=== PATIENT | female | born 1990 | race Hispanic/Latino ===

== ENCOUNTER → 2020-03-13 14:05 | Outpatient (CLI) | payer OTHER, SELFPAY ==
[2020-03-13 14:44] LABS: Appearance Urine UA CLEAR; Bilirubin Urine UA NEGATIVE (NEGATIVE); Color Urine UA YELLOW; Glucose Urine UA NEGATIVE (Negative); Ketones Urine UA NEGATIVE (NEGATIVE); Leukocyte Esterase Urine UA NEGATIVE (NEGATIVE); Nitrite Urine UA NEGATIVE (Negative); Occult Blood Urine UA TRACE-LYSED (Negative); Protein Urine UA NEGATIVE (Negative); Specific Gravity Urine UA 1.025 (1.000-1.035); Urobilinogen Urine UA 0.2 E.U./dL (0.2)
[2020-03-13 14:47] LABS: Pregnancy Test Urine Negative (Negative)
[2020-03-13 14:48] LABS: Add Manual Diff / Slide Review NO; Basophils Absolute Auto 0 /uL (0-100); Basophils Percent Auto 0.5 % (0-2); Eosinophils Absolute Auto 300 /uL (0-450); Eosinophils Percent Auto 2.9 % (2-4); Hemoglobin 12.9 g/dL (12.0-16.0); Lymphocytes Absolute Auto 2200 /uL (1100-4500); Lymphocytes Percent Auto 23.9 % (25-40); Mean Corpuscular HGB Conc 33.1 % (30-36); Mean Corpuscular Hemoglobin 27.7 PG (26-34); Mean Corpuscular Volume 83.6 fL (80-100); Monocytes Absolute Auto 500 /uL (0-900); Monocytes Percent Auto 5.6 % (3-14); Neutrophils Absolute Auto 6200 /uL (1500-7000); Neutrophils Percent Auto 67.1 % (50-75); Platelet Count 213 X10^3/uL (150-400); Red Blood Cell Count 4.67 X10^6/uL (4.0-5.2); Red Cell Distribution Width 14.1 % (11.6-14.8); White Blood Cell Count 9.2 X10^3/uL (4.5-11.0)
[2020-03-13 15:11] LABS: Alanine Aminotransferase 28 IU/L (<35); Albumin 4.5 g/dL (3.5-5.0); Albumin Globulin Ratio 1.2 (1.0-2.8); Alkaline Phosphatase 102 U/L (38-126); Aspartate Aminotransferase 23 IU/L (14-36); BUN Creatinine Ratio 19.6 (6-22); Bilirubin Total 0.3 mg/dL (0.2-1.3); Blood Urea Nitrogen 9 mg/dL (7-17); Calcium 9.4 mg/dL (8.4-10.2); Carbon Dioxide 27 mmol/L (22-32); Chloride 105 mmol/L (98-107); Cholesterol 163 mg/dL (140-199); Estimated Glomerular Filt Rate > 60.0 mL/min (>60); Globulin 3.7 g/dL (1.7-4.1); Glucose 93 mg/dL (70-100); HDL Cholesterol 45 mg/dL (40-60); HEMOLYSIS < 15 (0-50); LDL Cholesterol Calculated 84 mg/dL (<100); Sodium 140 mmol/L (137-145); Total Protein 8.2 g/dL (6.3-8.2); Triglycerides 169 mg/dL (35-150)
[2020-03-13 15:13] LABS: Hemoglobin A1C% w Est Avg Glu 5.6 % (4.0-6.0)
[2020-03-13 15:20] LABS: pH Urine UA 6.5 (4.5-8.0)
[2020-03-13 15:27] LABS: RBC Urine 0-1/HPF (0-5/HPF); Squamous Epithelial Cell Urine 5-10 /HPF (0-5/HPF); WBC Urine 1-5/HPF (0-5/HPF)
[2020-03-13 15:28] LABS: Bacteria Urine Moderate (10-30); Culture Indicated Urine Cult Not Indicated
[2020-03-13 15:38] LABS: TSH w/ Reflex to FT4 1.34 uIU/mL (0.47-4.68)
[2020-03-17 05:38] LABS: Percent Free Testosterone 2.24 % (0.50-2.80); Testosterone Free 0.72 ng/dL (0.10-0.85); Testosterone Total 32.2 ng/dL (10.0-55.0)
== END ==
PROVIDERS: PCP Family Medicine; Referring Provider Family Medicine; Visit Provider Family Medicine
DX: E66.9 Obesity, unspecified (principal); N92.6 Irregular menstruation, unspecified
CPT/HCPCS: 36415; 80053; 80061; 81001; 81025; 83036; 84402; 84403; 84443; 85025

== ENCOUNTER → 2020-05-26 11:07 | Outpatient (CLI) | payer OTHER, SELFPAY ==
--- NOTE | 2020-05-26 11:08 | DI.US.S_ITS ---
PROCEDURE: US PELVIC COMPLETE INDICATIONS: Infertility/possible PCOS TECHNIQUE: Real-time scanning was performed of the pelvic organs, with image documentation. Additional endovaginal scanning was necessary due to incomplete visualization of the adnexal and endometrial structures by transabdominal scanning. COMPARISON: None. FINDINGS: Uterus: Uterus is normal in size at 8.2 x 4.3 x 5.8 cm. The endometrium measures 5 mm in combined thickness. Ovaries: The right ovary measures 3.5 x 1.7 x 1.4 cm. The left ovary measures 4.3 x 2.6 x 2.2 cm. The ovaries have a normal sonographic appearance. Less than 12 follicles can be seen involving each ovary. No adnexal masses are seen. Other: No pathologic free abdominal or pelvic fluid. IMPRESSION: Study within normal limits, without findings of polycystic ovarian syndrome. Dictated by: Elroy Varner M.D. on 05/26/2020 at 12:08 Approved by: Elroy Varner M.D. on 05/26/2020 at 12:08
== END ==
PROVIDERS: PCP Family Medicine; Referring Provider Family Medicine; Visit Provider Family Medicine
DX: N97.9 Female infertility, unspecified (principal); N92.0 Excessive and frequent menstruation with regular cycle; N92.6 Irregular menstruation, unspecified
CPT/HCPCS: 76830; 76856

== ENCOUNTER → 2020-12-15 09:32 | Outpatient (CLI) | payer OTHER, SELFPAY ==
--- NOTE | 2020-12-15 09:33 | DI.US.S_ITS ---
PROCEDURE: US OB <= 14 WEEKS FETUS INDICATIONS: DATING AND VIABILITY OUTSIDE/PRIOR DATING DATA: Last menstrual period (LMP): 10/11/20 . LMP-based estimated date of delivery (FAIZAN): 07/18/21 . First dating scan (date and location): 12/15/20, current study Estimated date of delivery (FAIZAN) from first dating scan: 07/12/21 . TECHNIQUE: Real-time scanning was performed of the fetuses and maternal pelvic organs, with image documentation. Endovaginal scanning: Performed for better visualization of the fetuses and maternal adnexal structures. COMPARISON: None. FINDINGS: General: An intrauterine diamniotic dichorionic twin is present, as evidenced by separate placental sites and/or intervening membrane thickness of greater than 2 mm at this early gestational age. Embryo A: Average crown-rump length is 3.3 cm corresponding to a 10 week one day plus or minus six days gestation. Yolk sac was visible. Heart rate: 171 Embryo B: Average crown-rump length is 3.1 cm corresponding to a nine week six day plus or minus six days gestation. Due to maternal body habitus and position, a yolk sac was not well seen. Heart rate: 165 Measurement variability in dating: +/- 4 weeks by LMP, +/- 7 days by mean sac diameter (use before 6 weeks gestation if crown-rump length unable to be measured), +/- 5 days by crown-rump length (up to 8 weeks 6 days gestation), +/- 7 days by crown-rump length (up to 13 weeks 6 days gestation). Maternal organs: Ovaries not well seen due to maternal body habitus. The cervix is closed. There is no visible active subchorionic hemorrhage. No free pelvic fluid. . IMPRESSION: 1. Diamniotic dichorionic viable twin is present. Ultrasound derived FAIZAN of the larger fetus is 07/12/21. 2. Closed cervix and no subchorionic hemorrhage. Dictated by: Sandra Stanton M.D. on 12/15/2020 at 18:44 Approved by: Sandra Stanton M.D. on 12/15/2020 at 18:59
== END ==
PROVIDERS: PCP Family Medicine; Referring Provider Obstetrics & Gynecology; Visit Provider Obstetrics & Gynecology
DX: O30.041 Twin pregnancy, dichorionic/diamniotic, first trimester (principal); Z3A.09 9 weeks gestation of pregnancy
CPT/HCPCS: 76801; 76802; 76817

== ENCOUNTER → 2020-12-24 15:40 | Outpatient (CLI) | payer OTHER, SELFPAY ==
[2020-12-24 19:52] LABS: Bilirubin Urine UA NEGATIVE (NEGATIVE); Color Urine UA YELLOW; Glucose Urine UA NEGATIVE (Negative); Ketones Urine UA 2+ (NEGATIVE); Leukocyte Esterase Urine UA 2+ (NEGATIVE); Nitrite Urine UA NEGATIVE (Negative); Occult Blood Urine UA TRACE-LYSED (Negative); Protein Urine UA 1+ (Negative); Specific Gravity Urine UA 1.025 (1.000-1.035); Urobilinogen Urine UA 0.2 E.U./dL (0.2)
[2020-12-24 19:59] LABS: Appearance Urine UA Slightly Cloudy
[2020-12-24 20:01] LABS: Amorphous Sediment Urine 1+; Bacteria Urine Many (>30); Mucus Urine 1+ (Negative); RBC Urine 0-1/HPF (0-5/HPF); Squamous Epithelial Cell Urine 5-10 /HPF (0-5/HPF); WBC Urine 30-100/HPF (0-5/HPF)
== END ==
PROVIDERS: PCP Family Medicine; Referring Provider Obstetrics & Gynecology; Visit Provider Obstetrics & Gynecology
DX: Z34.81 Encounter for supervision of other normal pregnancy, first trimester (principal); Z3A.11 11 weeks gestation of pregnancy
CPT/HCPCS: 81001; 87077; 87086

== ENCOUNTER → 2021-01-12 09:16 | Outpatient (CLI) | payer OTHER, SELFPAY ==
--- NOTE | 2021-01-12 09:17 | DI.US.S_ITS ---
PROCEDURE: US OB >= 14 WK FETUS ADD GEST INDICATIONS: GROWTH DI-DI TWINS OUTSIDE/PRIOR DATING DATA: Last menstrual period (LMP): 10/11/2020. LMP-based estimated date of delivery (FAIZAN): 07/18/2021 . First dating scan (date and location): 12/15/2020 . Estimated date of delivery (FAIZAN) from first dating scan: 07/12/2021 . TECHNIQUE: Real-time scanning was performed of the fetuses, with image documentation and biometric measurements. Endovaginal scanning: Yes COMPARISON: None. FINDINGS: General: An intrauterine dichorionic-diamniotic twin is present, as evidenced by separate placentas, differing sexes, or an intervening membrane of greater than 2 mm. Composite amniotic fluid index: Subjectively normal. Maternal cervical canal: 4.2 cm, with complete previa at this time. Normal lower limit is 2.5 cm. FETUS A: Fetus is located variable in position.. Largest amniotic fluid pocket: Not obtained. heart rate: 168 beats per minute. biometrics: Biparietal diameter: 14 weeks 3 days Head circumference: 14 weeks 2 days Abdominal circumference: 14 weeks 5 days Femur length: 14 weeks 2 days Estimated gestational age from initial scan: 14 weeks 1 day Composite gestational age from present scan: 14 weeks 3 days Measurement variability for biometric dating: +/- 7 days from 14 weeks to 15 weeks 6 days gestation, +/- 10 days from 16 weeks to 21 weeks 6 days gestation, +/- 2 weeks from 22 weeks to 27 weeks 6 days gestation, +/- 3 weeks for 28 weeks gestation or later. weight reference: 4500 g or EFW >90/95% is considered macrosomia or large for gestational age. EFW <10% is small for gestational age. EFW 5% or less is considered intra-uterine growth restriction. FETUS B: Fetus is variable in position. Largest amniotic fluid pocket: Subjectively normal. heart rate: 150 beats per minute. biometrics: Biparietal diameter: 14 weeks 6 days Head circumference: 14 weeks 6 days Abdominal circumference: 15 weeks Femur length: 14 weeks 3 days Estimated gestational age from initial scan: 14 weeks 1 day Composite gestational age from present scan: 14 weeks 6 days Measurement variability for biometric dating: +/- 7 days from 14 weeks to 15 weeks 6 days gestation, +/- 10 days from 16 weeks to 21 weeks 6 days gestation, +/- 2 weeks from 22 weeks to 27 weeks 6 days gestation, +/- 3 weeks for 28 weeks gestation or later. weight reference: 4500 g or EFW >90/95% is considered macrosomia or large for gestational age. EFW <10% is small for gestational age. EFW 5% or less is considered intra-uterine growth restriction. IMPRESSION: 1. Diamniotic dichorionic living twin gestation redemonstrated and interval growth is normal. 2. Limited anatomic survey secondary to early gestational age. Follow-up is recommended. 3. Complete previa at this time which can be reassessed on follow-up examination. Dictated by: Leandro SHEPPARD Interpreted: Sera Wilson MD on 01/13/2021 at 9:37 Transcribed by: NNAMDI on 01/13/2021 at 9:42 Approved by: Sera Wilson M.D. on 01/13/2021 at 16:12
== END ==
PROVIDERS: PCP Family Medicine; Referring Provider Obstetrics & Gynecology; Visit Provider Obstetrics & Gynecology
DX: O30.041 Twin pregnancy, dichorionic/diamniotic, first trimester (principal); Z3A.14 14 weeks gestation of pregnancy
CPT/HCPCS: 36415; 76801; 76811; 76812; 76815; 76817; 80055; 86787; 86803; 86850; 86900; 86901; 87389

== ENCOUNTER → 2021-01-12 10:03 | Outpatient (CLI) | payer OTHER, SELFPAY ==
[2021-01-12 10:34] LABS: Add Manual Diff / Slide Review NO; Basophils Absolute Auto 0 /uL (0-100); Basophils Percent Auto 0.4 % (0-2); Eosinophils Absolute Auto 100 /uL (0-450); Hematocrit 34.3 % (36-46); Hemoglobin 11.5 g/dL (12.0-16.0); Lymphocytes Absolute Auto 1600 /uL (1100-4500); Lymphocytes Percent Auto 15.8 % (25-40); Mean Corpuscular HGB Conc 33.6 % (30-36); Mean Corpuscular Hemoglobin 27.8 PG (26-34); Mean Corpuscular Volume 82.6 fL (80-100); Monocytes Absolute Auto 500 /uL (0-900); Monocytes Percent Auto 5.3 % (3-14); Neutrophils Absolute Auto 7900 /uL (1500-7000); Neutrophils Percent Auto 77.5 % (50-75); Platelet Count 194 X10^3/uL (150-400); Red Blood Cell Count 4.15 X10^6/uL (4.0-5.2); Red Cell Distribution Width 14.6 % (11.6-14.8); White Blood Cell Count 10.2 X10^3/uL (4.5-11.0)
[2021-01-12 15:59] LABS: Hepatitis B Surface Antigen NEGATIVE s/c (NEGATIVE); Rubella Antibody IgG 56.7 IU/mL (>15)
[2021-01-12 16:14] LABS: HIV 1 & 2 Ab/Ag 4th Gen Combo NEGATIVE (NEGATIVE); Hep C Virus Ab w/Reflex Quant NEGATIVE s/c (NEGATIVE)
[2021-01-13 06:54] LABS: RPR Screen Non Reactive (Non Reactive); Varicella IgG Antibody 1796 index (Immune >165)
== END ==
PROVIDERS: PCP Family Medicine; Referring Provider Obstetrics & Gynecology; Visit Provider Obstetrics & Gynecology
DX: Z34.90 Encounter for supervision of normal pregnancy, unspecified, unspecified trimester (principal)
CPT/HCPCS: 36415; 80055; 86787; 86803; 86850; 86900; 86901; 87389

== ENCOUNTER → 2021-01-23 13:59 | Outpatient (CLI) | payer OTHER, SELFPAY ==
[2021-01-23 17:50] LABS: GTT (PREG) 1 Hour PP 50gm Dose 144 mg/dL (76-139)
[2021-01-26 21:17] LABS: AFP, Serum 37.4 ng/mL (.); Calc Gestational Age Ultrasound (.); Estriol, Free 0.76 ng/mL (.); Inhibin A, Dimeric 267.26 pg/mL (.); Inhibin A, MoM 2.31 (.); Maternal Ethnicity Other (.); Maternal Weight 286 lbs (.); Number of Fetuses Twins (.); OSBR Risk 1 IN 3406 (.); Results Report (.); Test Results *Screen Negative* (.); hCG, MoM 1.56 (.); hCG, Serum 47992 mIU/mL (.)
== END ==
PROVIDERS: PCP Family Medicine; Referring Provider Obstetrics & Gynecology; Visit Provider Obstetrics & Gynecology
DX: E66.9 Obesity, unspecified (principal); O09.299 Supervision of pregnancy with other poor reproductive or obstetric history, unspecified trimester; Z3A.15 15 weeks gestation of pregnancy; Z86.32 Personal history of gestational diabetes
CPT/HCPCS: 36415; 82105; 82677; 82950; 84702; 86336

== ENCOUNTER → 2021-02-06 07:49 | Outpatient (CLI) | payer OTHER, SELFPAY ==
[2021-02-06 08:51] LABS: Glucose Fasting Gestational 87 mg/dL (76-95)
[2021-02-06 10:02] LABS: Glucose 1 Hour Gest 185 mg/dL (76-180)
[2021-02-06 11:20] LABS: Glucose Tol Interp,Gestational INTERPRETATION
[2021-02-06 11:52] LABS: Glucose 2 Hour Gest 117 mg/dL (76-155)
[2021-02-06 12:45] LABS: Glucose 3 Hour Gest 73 mg/dL (76-140)
== END ==
PROVIDERS: PCP Family Medicine; Referring Provider Obstetrics & Gynecology; Visit Provider Obstetrics & Gynecology
DX: O99.810 Abnormal glucose complicating pregnancy (principal)
CPT/HCPCS: 36415; 82951; 82952

== ENCOUNTER → 2021-02-09 09:11 | Outpatient (CLI) | payer OTHER, SELFPAY ==
--- NOTE | 2021-02-09 09:12 | DI.US.S_ITS ---
PROCEDURE: US OB LIMITED INDICATIONS: GROWTH OF DIAMNOTIC TWINS OUTSIDE/PRIOR DATING DATA: Last menstrual period (LMP): 10/11/2020. LMP-based estimated date of delivery (FAIZAN): 07/18/2021. First dating scan (date and location): 12/15/2020 Estimated date of delivery (FAIZAN) from first dating scan: 07/12/2021 TECHNIQUE: Real-time scanning was performed of the fetuses, with image documentation and biometric measurements. Endovaginal scanning: Yes COMPARISON: None. FINDINGS: General: An intrauterine dichorionic-diamniotic twin is present, as evidenced by separate placentas, differing sexes, or an intervening membrane of greater than 2 mm. Composite amniotic fluid index: Visually within normal limits. Maternal cervical canal: Visually within normal limits. FETUS A: Fetus is in variable presentation Largest amniotic fluid pocket: 4.8 cm, normal is 2-8 cm. Placental position is posterior, without previa. heart rate: 149 beats per minute. biometrics: Biparietal diameter: 4.2 cm, 18 weeks, 5 days Head circumference: 15.3 cm, 18 weeks, 2 days Abdominal circumference: 13.4 cm, 18 weeks, 6 days Femur length: 2.8 cm, 18 weeks, 4 days Estimated gestational age from initial scan: 18 weeks, 1 day Composite gestational age from present scan: 18 weeks, 4 days Estimated weight and percentile: 253 grams, 79 percent Measurement variability for biometric dating: +/- 7 days from 14 weeks to 15 weeks 6 days gestation, +/- 10 days from 16 weeks to 21 weeks 6 days gestation, +/- 2 weeks from 22 weeks to 27 weeks 6 days gestation, +/- 3 weeks for 28 weeks gestation or later. weight reference: 4500 g or EFW >90/95% is considered macrosomia or large for gestational age. EFW <10% is small for gestational age. EFW 5% or less is considered intra-uterine growth restriction. FETUS B: Fetus is in vertex presentation. Largest amniotic fluid pocket: 4.2 cm, normal is 2-8 cm. Placental position is posterior, without previa. heart rate: 168 beats per minute. biometrics: Biparietal diameter: 4.0 cm, 18 weeks, 0 days. Head circumference: 15.4 cm, 18 weeks, 3 days Abdominal circumference: 14.0 cm, 19 weeks, 2 days Femur length: 2.7 cm, 18 weeks, 1 day Estimated gestational age from initial scan: 18 weeks, 1 day Composite gestational age from present scan: 18 weeks, 3 days Estimated weight and percentile: 254 grams, 80 percent. Measurement variability for biometric dating: +/- 7 days from 14 weeks to 15 weeks 6 days gestation, +/- 10 days from 16 weeks to 21 weeks 6 days gestation, +/- 2 weeks from 22 weeks to 27 weeks 6 days gestation, +/- 3 weeks for 28 weeks gestation or later. weight reference: 4500 g or EFW >90/95% is considered macrosomia or large for gestational age. EFW <10% is small for gestational age. EFW 5% or less is considered intra-uterine growth restriction. IMPRESSION: 1. Intrauterine dichorionic and diamniotic twin as described in detail above. Normal amount of amniotic fluid. Normal growth. Dictated by: Dimitry Dean M.D. on 02/09/2021 at 11:11 Approved by: Dimitry Dean M.D. on 02/09/2021 at 11:16
== END ==
PROVIDERS: PCP Family Medicine; Referring Provider Obstetrics & Gynecology; Visit Provider Obstetrics & Gynecology
DX: O30.042 Twin pregnancy, dichorionic/diamniotic, second trimester (principal); O09.299 Supervision of pregnancy with other poor reproductive or obstetric history, unspecified trimester; O99.212 Obesity complicating pregnancy, second trimester; E66.01 Morbid (severe) obesity due to excess calories; Z68.42 Body mass index [BMI] 45.0-49.9, adult; Z86.32 Personal history of gestational diabetes; Z3A.18 18 weeks gestation of pregnancy
CPT/HCPCS: 76812; 76815

== ENCOUNTER → 2021-03-04 14:21 | Outpatient (CLI) | payer OTHER, SELFPAY ==
--- NOTE | 2021-03-04 17:15 | DIAB.GDA ---
Initial Gestational Diabetes Assessment Name: Adilia Avila Date: 03/04/21 Time: 230-4p Dx: Gestational Diabetes Provider: Galo FAIZAN: 07/12/21 Weeks: 21 Adilia presents for initial diabetes visit. States she has a h/o GDM with her daughter 6 years ago. Currently with twin boys. States she sees two OB providers, Dr. Rosenthal and a [facility] specialist. Brought her new meter today. Would like a meter review and to focus on nutrition recs today. Reports about a 20# gain during so far. Attributes this to eliminating her exercise routine once she found out she was . Was previously doing Beach [employer] exercises for weight loss. States she has been mostly avoiding soda, but does occasionally have reg soda. Diet Recall: 630-7a: breakfast sandwich with coffee and creamer (35-40g CHO) 10-11a: snack bar (25g CHO) 1230-1p: top ramen OR sandwich OR sushi OR [employer] burger and fries +/- soda (30-130g CHO) 4-5p: 1-1.5 c pasta +/- chicken OR 1c rice with chicken OR meat and veg OR fish tacos x 2 small (0-65g CHO) 7p: cheese sandwich OR apple OR frosted flakes with milk (15-45g CHO) Beverages: 60-80oz water, occasionally soda diet or reg Anthropometrics: Ht: 64 Wt: 297.6# today Prepregnancy wt: 275# reported Wt changes: +22.6# Prepregnancy BMI: 47 Recommended wt gain per BMI: 25-40# per IOM recs for twins Recommendations: slow weight gain to 0.5-0.8# per week Physical Activity: No current program. Was working out 3 x per week. Does not want to walk in cold weather. Plans to move next week to a place that has a gym. Open to walks inside at gym. Has step tracker watch, but does not use after work. Self-Monitoring Blood Glucose: Freestyle meter instruction with return demonstration. BG today was 109mg/dL 2 hr after lunch. States her provider suggested FBG and 1 hr pc checks, which this RD/CDCES agrees with. Diabetes Medications: None Pertinent Labs: 144 H glucose screen; OGTT: 87, 185 H, 117, 73 Nutrition Rx for twins: Carbohydrates: 200-245g CHO daily Meal: 45-60g lunch and dinner; 30-45g breakfast Snack: 15-30g *Will re-evaluate carb recs next week based on BG checks and current intake. Nutrition Diagnosis: Altered nutrition related lab value r/t GDM dx aeb recent OGTT Excessive CHO intake r/t beverage choices sometimes aeb diet recall at lunch Physical inactivity r/t omission of program due to fear of impacting aeb pt report and recent 20# weight gain INadequate fiber intake r/t omission of vegetables from most meals aeb diet recall Intervention: This participant was very receptive. Provided appropriate educational handouts. Discussed the following topics: GDM pathophysiology and impact of hyperglycemia on mom and baby Risk for T2DM for mom and baby in the future Ways to reduce risk T2DM Plate Method, meal timing, carb counting, pairing macronutrients and spreading out CHO for better BG management SMBG meter teach and sharps education Blood glucose goals (FBG: <95 and 1 hour <140 mg/dL); importance of checking 4x per day (FBG and pc) Impact of macronutrients on blood glucose Recommended servings for carbohydrates at meals and snacks Brainstormed appropriate meal plan based on her food preferences Role of physical activity and following provider guidelines for safety Goals: Add vegetables to lunch and dinner Track steps with watch Check BG: FBG and 1 hr pc goals FBG: <95 and 1 hr: <140 Follow-up: RADHA WHARTON follow-up in one week for BG review and nutrition rx evaluation. Tracy Marrero RDN, DIO Certified Diabetes Care and Furniture Fabricator T: [phone] F: [phone] [email or web address] Thank you for this referral
== END ==
PROVIDERS: PCP Family Medicine; Referring Provider Family Medicine; Visit Provider Family Medicine
DX: O24.419 Gestational diabetes mellitus in pregnancy, unspecified control (principal); Z3A.21 21 weeks gestation of pregnancy
CPT/HCPCS: 97802

== ENCOUNTER → 2021-03-11 13:56 | Outpatient (CLI) | payer OTHER, SELFPAY ==
--- NOTE | 2021-03-11 14:48 | DIAB.GDFU ---
Follow-up Gestational Diabetes Assessment Name: Adilia Avila Date: 03/11/21 Time: 2-230p Dx: Gestational Diabetes Provider: FAIZAN: 07/12/21 Weeks: 22 Adilia presents for DM follow-up for BG review. States she has been avoiding candy, soda, and junk foods high in carbs. Eating q 3 hours with three meals and two snacks per day. Most meals within nutrition goal of 45-60g CHO and breakfast 30-45g. Seems to be getting adequate intake and feels satisfied with meal plan. Some snacks low in protein. Mindful about adding more vegetables and salads. Does endorse poor sleep many nights which may be impacting FBG. Adilia and her have moved. States her 's family comes to town next week, which impacts her physical activity plans. Anthropometrics (last visit): Ht: 64 Wt: 297.6# Last visit Prepregnancy wt: 275# reported Wt changes: +22.6# Prepregnancy BMI: 47 Recommended wt gain per BMI: 25-40# per IOM recs for twins Recommendations: slow weight gain to 0.5-0.8# per week Physical Activity: No program yet. Tracking watch broke during the move. Has been moving her body freq due to moving. Careful about lifting. Moved closer to a gym and wants to attend starting 03/23. Self-Monitoring Blood Glucose: checking as rx'd: FBG and 1 hr pc. All in range. Some lower readings (80-90s) pc may indicate low carb intake. Discussed leaning toward 60g for a meal 1-2 x per day to ensure adequate intake with twins. FBG in range but quite variable. Waking 1-2 x per night. Avoids phone usage when waking. Having a hard time getting right back to sleep. Could be impacting FBG. Overall, well managed BG. Date Pre Post Pre Post Pre Post HS 03/04 109 2hr 93 03/05 76 130 115 03/06 90 99 84 126 03/07 85 125 99 103 03/08 92 137 113 92 6 92 103 105 115 03/10 92 113 114 109 8 86 108 110 Diabetes Medications: None Pertinent Labs: 144 H glucose screen; OGTT: 87, 185 H, 117, 73 (Last visit) Nutrition Rx for twins: Carbohydrates: 200-245g CHO daily Meal: 45-60g lunch and dinner; 30-45g breakfast Snack: 15-30g *Will cont to re-evaluate carb recs, BG checks and current intake. Intervention: This participant was very receptive. Provided appropriate educational handouts. Discussed the following topics: Recent blood sugar results and impact of food and hormones Importance of adequate nutrient intake Review of macronutrient recommendations during Physical activity plan and safety Sleep impact on FBG Protein importance during preg and ways to add to snacks Goals: Add vegetables to lunch and dinner- met Track steps with watch- not met Check BG: FBG and 1 hr pc - met and continue goals FBG: <95 and 1 hr: <140 Start walking 3 x per week for 30 min starting 03/23- new Try adding protein to snacks- new Follow-up: RADHA WHARTON follow-up in two weeks Tracy Marrero RDN, DIO Certified Diabetes Care and Mental Health Associate T: [phone] F: [phone] [email or web address] Thank you for this referral
== END ==
PROVIDERS: PCP Family Medicine; Referring Provider Family Medicine; Visit Provider Family Medicine
DX: O24.419 Gestational diabetes mellitus in pregnancy, unspecified control (principal); Z3A.22 22 weeks gestation of pregnancy; Z71.3 Dietary counseling and surveillance
CPT/HCPCS: G0108

== ENCOUNTER → 2021-03-24 15:28 | Outpatient (CLI) | payer OTHER, SELFPAY ==
--- NOTE | 2021-03-24 16:25 | DIAB.GDFU ---
Follow-up Gestational Diabetes Assessment Name: Adilia Avila Date: 03/24/21 Time: 345-415pm Dx: Gestational Diabetes FAIZAN: 07/12/21 Weeks: 24 Adilia presents for GDM follow-up. No remarkable changes or recs from specialist reported. States she say MFM today. States the provider advised reducing BG checks to q other day until next provider visit 04/21/21. All readings in range. States she continues to avoid junk food though does have cravings. States she has added protein to snacks as discussed last visit. Water intake seems low at 48-64oz daily. Endorses avoiding sugary beverages, especially when eating out. States she successfully breastfed her daughter for 6 months and plans to BF these twin boys. Overall, Adilia is doing very well. Will push follow-up to 3 weeks after her OB appt. Anthropometrics: Ht: 64 Wt: 297# 03/20 Prepregnancy wt: 275# reported Wt changes: +22# Prepregnancy BMI: 47 Recommended wt gain per BMI: 25-40# per IOM recs for twins Recommendations: + 0.5-0.8# per week Physical Activity: Just started walking 30 min yesterday, which was the plan last visit since extended family would be gone by this time. Plans to cont. Self-Monitoring Blood Glucose: No recent elevations. Checking FBG and 1 hr pc. Date Pre Post Pre Post Pre Post HS 03/18 92 138 100 105 03/19 89 133 109 115 03/20 89 137 101 120 03/21 93 120 122 74 03/22 89 110 110 99 03/23 94 136 103 93 03/24 87 123 101 Diabetes Medications: None Pertinent Labs: 144 H glucose screen; OGTT: 87, 185 H, 117, 73 (Last visit) Nutrition Rx for twins: Carbohydrates: 200-245g CHO daily Meal: 45-60g lunch and dinner; 30-45g breakfast Snack: 15-30g *Will cont to re-evaluate carb recs, BG checks and current intake. Nutrition Diagnosis: Altered nutrition related lab value r/t GDM dx aeb recent OGTT inadequate fluid intake r/t increased needs during aeb pt report of 48-64oz per day Intervention: This participant was very receptive. Provided appropriate educational handouts. Discussed the following topics: Recent blood sugar results and impact of food and hormones Review of current intake and recs Benefits, resources, and nutrition for , reviewed resources for twins and IH resources recommendations for nutrition and physical activity recommendations for T2DM risk reduction OGTT at 6-12 weeks Potential checking blood sugars twice per week (goal: fasting <100 mg/dL and 2 hour pc <140 mg/dL) until 6 week check-up HgA1c q 1-3 years. Exercise plan Water recs during Goals: Check BG: FBG and 1 hr pc - met and continue goals FBG: <95 and 1 hr: <140 Start walking 3 x per week for 30 min starting 03/23- in progress Try adding protein to snacks- met Have 4 water bottles or more (64oz+)- new If 2 or more elevated FBG in a week contact DM ed- new Follow-up: RADHA WHARTON follow-up in 3 weeks Tracy Marrero RDN, DIO Certified Diabetes Care and Graphic Design Specialist T: [phone] F: [phone] [email or web address] Thank you for this referral
== END ==
PROVIDERS: PCP Family Medicine; Referring Provider Family Medicine; Visit Provider Family Medicine
DX: O24.419 Gestational diabetes mellitus in pregnancy, unspecified control (principal); Z3A.24 24 weeks gestation of pregnancy
CPT/HCPCS: 97803

== ENCOUNTER → 2021-04-17 09:25 | Outpatient (CLI) | payer OTHER, SELFPAY ==
--- NOTE | 2021-04-21 15:34 | DIAB.GDFU ---
Follow-up Gestational Diabetes Assessment Name: Adilia Avila Date: 04/17/21 Time: 925-940a Dx: Gestational Diabetes FAIZAN: 07/12/21 Weeks: 27-28 Dx: Type II Diabetes Adilia presents for quick check in today after her OB appt. BG all in range. Overall, diet is going well. States she feels satisfied and is aiming for adequate intake. Weight gain seems adequate. No questions or concerns reported. Has been working on water intake, 4 or more bottles per day. Added cheese to snacks to increase protein. Anthropometrics: Ht: 64 Wt: 297.7# Prepregnancy wt: 275# reported Wt changes: +22.7# Prepregnancy BMI: 47 Recommended wt gain per BMI: 25-40# per IOM recs for twins Recommendations: + 0.5-0.8# per week Physical Activity: Now walking 3 days per week for exercise Self-Monitoring Blood Glucose: Despite some readings being even below ADA recs (110-140 mg/dL) reports adequate carb intake. Date Pre Post Pre Post Pre Post HS 04/05 83 103 88 100 04/07 90 136 137 86 04/09 90 100 82 95 04/11 93 117 98 107 04/13 92 107 95 85 04/15 88 123 117 92 04/17 91 115 Diabetes Medications: None Pertinent Labs: 144 H glucose screen; OGTT: 87, 185 H, 117, 73 (Last visit) Nutrition Rx for twins: Carbohydrates: 200-245g CHO daily Meal: 45-60g lunch and dinner; 30-45g breakfast Snack: 15-30g *Will cont to re-evaluate carb recs, BG checks and current intake. Nutrition Diagnosis: Altered nutrition related lab value r/t GDM dx aeb recent OGTT inadequate fluid intake r/t increased needs during aeb pt report of 48-64oz per day- improved Intervention: This participant was very receptive. Provided appropriate educational handouts. Discussed the following topics: Recent blood sugar results/trends and impact of hormones for the duration of the Review of fluid recs Adequate intake and satiety of meals and BG goals during Goals: Start walking 3 x per week for 30 min starting 03/23- met Try adding protein to snacks- met Have 4 water bottles or more (64oz+)- met If 2 or more elevated FBG in a week contact DM ed- cont Follow-up: RADHA WHARTON follow-up in 3 weeks. She has agreed to call with any questions or concerns prior to follow-up. Will focus more on nutrition next visit. Tracy Marrero RDN, DIO Certified Diabetes Care and [employer] T: [phone] F: [phone] [email or web address] Thank you for this referral
== END ==
PROVIDERS: PCP Family Medicine; Referring Provider Obstetrics & Gynecology; Visit Provider Obstetrics & Gynecology
DX: O24.410 Gestational diabetes mellitus in pregnancy, diet controlled (principal); Z3A.27 27 weeks gestation of pregnancy
CPT/HCPCS: 97803

== ENCOUNTER → 2021-05-14 09:20 | Outpatient (CLI) | payer OTHER, SELFPAY ==
--- NOTE | 2021-05-14 10:20 | DIAB.GDFU ---
Follow-up Gestational Diabetes Assessment Name: Adilia Avila Date: Time: Dx: Gestational Diabetes FAIZAN: 07/12/21 Weeks: 31-32 Adilia presents for follow-up visit regarding GDM dx. She denies any concerns. Seems nutrition is going well. Reports balanced meals and snacks. May still be under carb intake a bit for with twins, but she is feeling full/satiated at this time. Dinner meals seem to result in early satiety. Having a hard time finishing meals at that time. Despite reported higher carb intake at dinner, BG are often <100 for this meal. Eating small frequent meals and snacks. Getting adequate fluid intake. States the biggest difference between now and how she ate prior to is sugar. She has cut out sugar sweetened beverages, namely sodas, and switched to sf options. Additionally, she has reduced her sweets intake. Anticipates that she can continue these changes . Today we will discuss nutrition ( nutrition and T2 risk reduction nutrition). Diet Recall: B: eggs, sausage, 2 toast L: cooked sushi, watermelon s: popcorn D: salmon, orzo with peas and pesto S: sandwich Beverages: water Anthropometrics: Ht: 64 Wt: 297# (last OB appt) Prepregnancy wt: 275# reported Wt changes: +22# Prepregnancy BMI: 47 Recommended wt gain per BMI: 25-40# per IOM recs for twins Recommendations: + 0.5-0.8# per week Physical Activity: Cont walking 15-30 min 3 x per week Self-Monitoring Blood Glucose: All in range. FB-95 mg/dL and pc: 80-134 mg/dL. Diabetes Medications: None Pertinent Labs: 144 H glucose screen; OGTT: 87, 185 H, 117, 73 Nutrition Rx for twins: Carbohydrates: 200-245g CHO daily Meal: 45-60g lunch and dinner; 30-45g breakfast Snack: 15-30g Nutrition Diagnosis: Altered nutrition related lab value r/t GDM dx aeb recent OGTT Nutrition and food knowledge deficit r/t nutrient needs education needed aeb pt report Potential inadequate carb intake r/t early satiety at dinner aeb lower BG <100 at dinner and pt report of early satiety. Intervention: This participant was very receptive. Provided appropriate educational handouts. Discussed the following topics: Recent blood sugar results and impact of food and hormones Review of macronutrient recommendations during , Rec frequent balanced meals/snacks nutrition, getting enough nutrients, cont balanced eating Ways to reduce T2 risk with lifestyle, Rec 150+ min activity per week, plate method for meals, cont avoiding sugared beverages Goals: Try overnight oats with almond milk - new Cont to avoid sugary beverages Follow-up: RADHA WHARTON follow-up prn. Adilia is overall doing great. Encouraged her to reach out with any questions or concerns or follow-up needs going forward. Tracy Marrero RDN, DIO Certified Diabetes Care and Pharmacy Resource Tech T: [phone] F: [phone] [email or web address] Thank you for this referral
== END ==
PROVIDERS: PCP Family Medicine; Referring Provider Obstetrics & Gynecology; Visit Provider Obstetrics & Gynecology
DX: O24.419 Gestational diabetes mellitus in pregnancy, unspecified control (principal); Z3A.32 32 weeks gestation of pregnancy; Z71.3 Dietary counseling and surveillance
CPT/HCPCS: 97803

== ENCOUNTER 2021-06-04 10:13 | Outpatient (CLI) | payer OTHER, SELFPAY | END 2021-06-04 12:51 | disposition home or self-care (01) | LOC: LABOR 10:26 → OB 06-10 16:26 | PROVIDERS: PCP Family Medicine; Referring Provider Obstetrics & Gynecology; Visit Provider Obstetrics & Gynecology | DX: O30.003 Twin pregnancy, unspecified number of placenta and unspecified number of amniotic sacs, third trimester (principal); O24.419 Gestational diabetes mellitus in pregnancy, unspecified control; Z3A.34 34 weeks gestation of pregnancy | CPT/HCPCS: 59025; 76815; G0378; G0379 ==

== ENCOUNTER 2021-06-11 10:11 | Outpatient (CLI) | payer OTHER, SELFPAY | END 2021-06-11 11:20 | disposition home or self-care (01) | LOC: LABOR 11:17 → OB 06-14 10:46 | PROVIDERS: PCP Family Medicine; Referring Provider Obstetrics & Gynecology; Visit Provider Obstetrics & Gynecology | DX: O30.003 Twin pregnancy, unspecified number of placenta and unspecified number of amniotic sacs, third trimester (principal); O24.419 Gestational diabetes mellitus in pregnancy, unspecified control; Z3A.35 35 weeks gestation of pregnancy | CPT/HCPCS: 59025; G0378; G0379 ==

== ENCOUNTER 2021-06-18 10:12 | Outpatient (CLI) | payer OTHER, SELFPAY ==
[2021-06-18 14:36] LABS: Strep Grp B PCR POS for Grp B Strep
== END 2021-06-18 11:41 | disposition home or self-care (01) ==
LOC: OB 06-19 15:42
PROVIDERS: PCP Family Medicine; Referring Provider Obstetrics & Gynecology; Visit Provider Obstetrics & Gynecology
DX: O30.003 Twin pregnancy, unspecified number of placenta and unspecified number of amniotic sacs, third trimester (principal); O24.419 Gestational diabetes mellitus in pregnancy, unspecified control; Z3A.36 36 weeks gestation of pregnancy
CPT/HCPCS: 59025; 87653; G0378; G0379

== ENCOUNTER 2021-06-26 05:39 | Inpatient (IN) | payer OTHER, SELFPAY ==
--- NOTE | 2021-06-25 12:21 | PM.OBHP.1 ---
OB HPI Date/Time Date of admission: 06/26/21 Date Patient Seen: 06/26/21 Time Patient Seen: 07:15 History of Present Condition Chief complaint: C Section : 2 Para: 1 Estimated Date of Delivery: 07/12/21 Estimated Gestational Age (weeks): 37+5 Narrative: Adilia Boswell is a 30 year old with a Di-Di twin gestation at 37 weeks 5 days gestational age admitted for primary section due to mild presentation and bilateral salpingectomy for elective sterilization. Maternal- consultation at [facility] has yielded recommendation for delivery by primary section due to the fact that twin B (breech) is significantly larger than twin A (vertex) and there is significant risk of entrapment of the after coming twin. Recommendation is also for delivery prior to 38+ 0 weeks gestational age in therefore the patient is admitted for primary this time. Patient also expresses desire for elective sterilization by bilateral salpingectomy at the time of . Patient has been counseled fully understands that sterilization procedure will result in her permanently and irreversibly being unable to bear children without the benefit of assisted reproductive technology. Course has been complicated by gestational diabetes for which she is had extremely good control simply with dietary changes. Patient is GBS positive. Indications Operative indications ( section): malpresentation History of Present care: good care Dating criteria: LMP confirmed by 1st trimester US Ultrasounds: normal 1st trimester US and normal mid trimester US Obstetrical complications: gestational diabetes Medical complications: none Preadmission Labs Blood type: O (+) positive -: Antibody screen: negative, GBS status: positive, HBsAG: negative, HIV: negative and RPR/VDLR: negative -: Chlamydia screen: not detected and Gonorrhea screen: not detected -: Rubella: not immune and Varicella: not immune HCT: 34.3 HCAB: negative PAP: Normal 1 hr GTT: 144 3 hr GTT: 1 hr (185), 2 hr (117) and 3 hr (73) Fasting blood glucose: 87 Prior (ies) History: x 1 [facility] Medical History (Updated 06/18/21 @ 14:50 by Hitesh Rosenthal MD) Carpal tunnel syndrome (~2008) COVID-19 affecting , antepartum Dichorionic diamniotic twin gestation (~12/15/20) Gestational diabetes Heavy menstrual period Irregular menstrual cycle Obesity (spontaneous vaginal delivery) (~10/04/14) Surgical History (Updated 12/17/20 @ 14:37 by Carlie Martinez, RN) Anesthesia History of hand surgery Family History (Updated 12/17/20 @ 14:36 by Carlie Martinez, NOREEN) Mother Hypertension Arthritis Brother Hypertension Grandmother Stroke Grandfather Old age Dementia Grandmother Cancer Stomach cancer Grandfather Alzheimer's dementia Father No problems noted. 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) current occupational exposures/hazards: No special bianca needs: No Smoking Status: Never smoker second hand exposure: No alcohol intake: former (pre- : on occasion ) substance use type: does not use Meds Home Medications and Allergies Home Medications Medication Instructions Recorded Confirmed Type prenat.vits,kevon,mtp-rhqj-mwqwt 1 tab PO DAILY 12/17/20 06/26/21 History blood sugar diagnostic (Blood #120 ea 02/24/21 06/04/21 Rx Glucose Test) blood-glucose meter (Blood Glucose #1 ea 02/24/21 06/04/21 Rx Monitoring) lancets #120 ea 02/24/21 06/04/21 Rx Allergies Allergy/AdvReac Type Severity Reaction Status Date / Time No Known Drug Allergies Allergy Verified 06/26/21 06:52 Review of Systems Review of Systems Narrative: Problem-specific ROS positives include with HPI OB Exam HENWY Head: normal to inspection, normocephalic and atraumatic Eyes General: appearance normal, both eyes and all related structures Resp Effort & Inspection: normal respiratory effort and able to speak in complete sentences Auscultation: clear to auscultation bilaterally Cardio Rhythm: regular rhythm Heart Sounds: S1 normal, S2 normal and no murmurs GI Inspection: normal to inspection Palpation: Yes soft and Yes no hepatosplenomegaly Uterus Location (Fundal Height): 45 Assessment and Plan Assessment and Plan Assessment and Plan narrative: ASSESSMENT 1. Intrauterine gestation, di-di twins, vertex breech presentation, 37+ 5 weeks gestational age 2. Gestational diabetes type A1; well controlled 3. GBS positive 4. Request for sterilization PLAN 1. Patient counseled regarding alternatives, risks, benefits, associated with primary section and bilateral salpingectomy for elective sterilization. With full understanding of the above, a written consent was executed, signed, and witnessed this date. 2. See admission orders
[2021-06-26] VITALS (7 sets, daily range): BP systolic 100–138; BP diastolic 31–82; PULSE 80–99; RESP 12–19; TEMP 36.1; O2SAT 96–100
--- NOTE | 2021-06-26 | PATH_ITS ---
[facility] Accession Number: [id number] . 01 Material submitted: . fallopian tube - BILATERAL FALLOPIAN TUBES . 01 Clinical history: . C SECTION . 02 Diagnosis: Bilateral Fallopian Tubes: Fallopian tubes x2, complete cross sections; negative for epithelial atypia or malignancy. MRV 06/30/2021 0953 Local . 02 Electronically signed: . Devi Esparza MD, Pathologist NPI- [id number] . 01 Gross description: . Received in one part. . Received in formalin, labeled [place], Adilia Acosta and designated 1. Bilateral fallopian tubes, are bilateral undesignated, fimbriated fallopian tubes. The first fallopian tube is 11.0 cm long by 0.8 cm in diameter with a purple-loivo, hyperemic outer surface and attached open fimbria. The second fallopian tube is 9.5 cm long by 0.9 cm in diameter with a purple-olivo, hyperemic outer surface and attached open fimbria. No additional lesions are identified. Waste Disposal Plant Operator sections are submitted as follows: . A1: Waste Disposal Plant Operator first fallopian tube with entire fimbria. A2: Waste Disposal Plant Operator second fallopian tube with entire fimbria. (ADONIS:[id number]) /FRR 06/27/2021 1739 Local . 02 Pathologist provided ICD-10: O32.1XX0, O30.049, Z3A.37, Z30.2 . 02 CPT . 291935 Specimen Comment: A courtesy copy of this report has been sent to [phone] Performed at: 01 [facility] [address] [place] [address] [address], [place], [place] [id number] MD Yovani Mejía MD Phone: [phone] Performed at: 02 [facility] [address] [place] [id number] MD Nancy Smith MD Phone: [phone]
--- NOTE | 2021-06-26 07:03 | PM.PREOP ---
Pre-operative Note COVID-19 COVID-19 status: Negative Result date/Date tested (Pos, Neg/Pending): 06/26/21 Criteria for continued procedure: Non-surgical alternatives not available or appropriate per current SOC Interval Note History & Physical reviewed/Exam performed by Physician: Yes Changes to H&P: No
[2021-06-26 07:12] LABS: COVID19 -Nasal RAPID Negative (Negative)
[2021-06-26] MEDS: LACTATED RINGERS 1,000 ML 100 ML IV ×3 (07:27→11:03)
--- NOTE | 2021-06-26 07:32 | SUR.OPER ---
Supine on Padded OR bed, head on pillow, safety belt at thigh, arms secured on padded arm boards at <90 degrees abduction. Bump under right buttock. Legs uncrossed with pillow under knees, gel pad to heels, tape over blanket to lower legs.
[2021-06-26] MEDS: CEFAZOLIN 2 GM/20 ML SYRINGE 3 GM IV (08:00)
[2021-06-26 08:34] LABS: Add Manual Diff / Slide Review NO; Basophils Absolute Auto 0 /uL (0-100); Basophils Percent Auto 0.5 % (0-2); Eosinophils Absolute Auto 100 /uL (0-450); Eosinophils Percent Auto 1.1 % (2-4); Hematocrit 35.3 % (36-46); Hemoglobin 11.9 g/dL (12.0-16.0); Lymphocytes Absolute Auto 1400 /uL (1100-4500); Lymphocytes Percent Auto 16.9 % (25-40); Mean Corpuscular HGB Conc 33.6 % (30-36); Mean Corpuscular Hemoglobin 28.5 PG (26-34); Mean Corpuscular Volume 84.9 fL (80-100); Monocytes Absolute Auto 400 /uL (0-900); Monocytes Percent Auto 5.2 % (3-14); Neutrophils Absolute Auto 6200 /uL (1500-7000); Neutrophils Percent Auto 76.3 % (50-75); Platelet Count 173 X10^3/uL (150-400); Red Blood Cell Count 4.15 X10^6/uL (4.0-5.2); Red Cell Distribution Width 15.3 % (11.6-14.8); White Blood Cell Count 8.2 X10^3/uL (4.5-11.0)
--- NOTE | 2021-06-26 08:40 | SUR.OPER ---
Viable twin males delivered via section. Cord blood vials x2 for Baby A and Baby B and placenta x2 for Baby A (clip attached) and Baby B sent with L&D RNs.
--- NOTE | 2021-06-26 08:47 | SUR.OPER ---
Baby A delivered at 08:26. Baby B delivered at 08:27.
--- NOTE | 2021-06-26 09:37 | SUR.PHASEI ---
Spinal level T3
--- NOTE | 2021-06-26 09:42 | P.OP_ITS ---
Operative Date/Time/Diagnoses Date of procedure: 06/26/21 Time of procedure: 08:15 Pre-op diagnosis: Intrauterine gestation, 37+ 5 weeks gestational age, twin (vertex/breech) Request for sterilization Post-op diagnosis: same Procedure & Clinicians Procedure: Primary section (low transverse cervical) Bilateral salpingectomy Same procedure as scheduled: Yes Indications: Adilia Boswell is a 30 year old with a Di-Di twin gestation at 37 weeks 5 days gestational age admitted for primary section due to mild presentation and bilateral salpingectomy for elective sterilization.? Maternal- consultation at [facility] has yielded recommendation for delivery by primary section due to the fact that twin B (breech) is significantly larger than twin A (vertex) and there is significant risk of entrapment of the after coming twin.? Recommendation is also for delivery prior to 38+ 0 weeks gestational age in therefore the patient is admitted for primary this time.? Patient also expresses desire for elective sterilization by bilateral salpingectomy at the time of .? Patient has been counseled fully understands that sterilization procedure will result in her permanently and irreversibly being unable to bear children without the benefit of assisted reproductive technology.? Course has been complicated by gestational diabetes for which she is had extremely good control simply with dietary changes.? Patient is GBS positive. Surgeon: Hitesh Rosenthal Animal Care Service Worker: Sirisha Whittaker Reason for Animal Care Service Worker: Animal Care Service Worker required for retraction and the timely, safe, and affect performance of this complex surgery. Anesthesia Type: Spinal Operative Notes Findings: Twin dichorionic/diamniotic gestation with 2 viable male infants in the vertex/terry breech presentation. Twin A, Apgars 9/9, weight 2570 gms. (5# 10.65 oz.), Twin B, Apgars 9/9, weight 3340 gms. (7# 5.8 oz.). Normal gravid anatomy. Closure Type: primary Specimen(s): cord blood Intraoperative meds administered: Pitocin Applied: Catheter Estimated Blood Loss (mL): 800 Blood products transfused: none Procedure in detail: With the patient under satisfactory spinal anesthetic in the dorsal supine position, the abdomen was prepped and draped in the usual fashion for a section and a Diaz catheter was inserted in the bladder. A pre-surgical safety time-out was then taken in accordance with [facility] Main OR protocols. A 15 cm Pfannenstiel incision was then made and the dissection was carried down through the subcutaneous tissues to the deep fascia which was also incised transversely. The fascia was undermined cephalad and caudad and the peritoneal cavity entered without difficulty. The bladder was advanced after performance of a transverse incision of the serosa overlying the lower uterine segment and transverse hysterotomy was performed revealing clear amniotic fluid. Twin A was delivered from the vertex presentation and was vigorous. Twin B was converted to cephalic presentation and delivered in the vertex presentation without difficulty and was also vigorous at . Delayed cord clamping was performed on Twin B but could not be performed on Twin A due to the necessity to expedite delivery of Twin B. Separate cord blood samples were obtained for each baby and the placentas were then removed with uterine massage and gentle cord traction. Complete evacuation of the uterus was confirmed with a sloppy wet lap followed by dry lap. Ring forceps were applied to both angles and the lower edge of the hysterotomy. A ring forcep was then passed down through the cervical os. The uterus was then closed with #1 Chromic in a running interlocking stitch to the midline and then a 2nd 1. Chromic was used to close the uterus with a running interlocking stitch starting at the other angle and tying separately near the midline. The hysterotomy site was then oversewn with a 2nd layer using #1 Chromic in a running interlocking imbricating stitch. Hemostasis was excellent no additional hemostatic sutures were required for complete hemostasis. Attention was then turned to performance of the bilateral salpingectomy and using handheld LigaSure device, the coagulation and division of the fimbria of Sylvie on the right was accomplished and the dissection carried across the mesos alpinx to the cornea where the tube was amputated. The excision line was hemostatic at the completion of that process. Attention was then turned to the left side which was managed in a similar fashion with the LigaSure device coagulating and dividing 1st the fimbria of Sylvie, the mesosalpinx, then the cornua with amputation of the tube. The pelvis was carefully inspected for any sources of bleeding and there were none evident. Bladder flap was then closed with 2-0 Vicryl in a running stitch and the anterior peritoneum was closed in a similar fashion. The deep fascia was then closed with #1 Vicryl using a running stitch initiated at both angles and tying separately near the midline. Subcutaneous tissues were brought together with 2-0 Vicryl in a running stitch and the skin edges themselves were brought together with 4-0 Monocryl in a running subcuticular closure. Steri-Strips were applied after Mastisol was applied to the skin and appropriate dressing was then applied to the wound. Patient was then transferred to the PACU for a period of observation and recovery having tolerated the procedure well. Complications: none Baby 2: Gender: Male Presentation: breech Details: terry Position: Left Occiput Anterior Placental Delivery Description: Spontaneous and Expressed Cord Vessel Description: 3 Vessels score (1 min): 9 score (5 min): 9 weight: 7 lb 5.815 oz 1: Gender: Male Presentation: vertex Position: Left Occiput Anterior Placental Delivery Description: Spontaneous and Expressed Cord Vessel Description: 3 Vessels score (1 min): 9 score (5 min): 9 weight: 5 lb 10.654 oz Post-operative Condition: stable Disposition: PACU Aftercare: routine postop
--- NOTE | 2021-06-26 10:07 | SUR.PHASEI ---
0950 Report called to center. Patient A&O, comfortable, tolerating PO well. VSS. Resp unlabored. Patient stable. Transported to by other staff members.
[2021-06-26] MEDS: ACETAMINOPHEN 325 MG TABLET 650 MG PO (17:07)
[2021-06-26] MEDS: IBUPROFEN 600 MG TABLET PO (17:07)
[2021-06-27 06:44] LABS: Add Manual Diff / Slide Review NO; Basophils Absolute Auto 0 /uL (0-100); Basophils Percent Auto 0.3 % (0-2); Eosinophils Absolute Auto 100 /uL (0-450); Eosinophils Percent Auto 0.7 % (2-4); Hematocrit 31.1 % (36-46); Hemoglobin 10.4 g/dL (12.0-16.0); Lymphocytes Absolute Auto 1300 /uL (1100-4500); Lymphocytes Percent Auto 12.4 % (25-40); Mean Corpuscular HGB Conc 33.5 % (30-36); Mean Corpuscular Hemoglobin 28.6 PG (26-34); Mean Corpuscular Volume 85.4 fL (80-100); Monocytes Absolute Auto 500 /uL (0-900); Monocytes Percent Auto 4.7 % (3-14); Neutrophils Absolute Auto 8500 /uL (1500-7000); Neutrophils Percent Auto 81.9 % (50-75); Platelet Count 163 X10^3/uL (150-400); Red Blood Cell Count 3.64 X10^6/uL (4.0-5.2); Red Cell Distribution Width 15.5 % (11.6-14.8); White Blood Cell Count 10.4 X10^3/uL (4.5-11.0)
[2021-06-27] MEDS: IBUPROFEN 600 MG TABLET PO ×3 (07:50→22:57)
[2021-06-27] MEDS: ACETAMINOPHEN 325 MG TABLET 650 MG PO ×3 (07:51→22:57)
--- NOTE | 2021-06-27 16:37 | PM.OBPN.1 ---
Subjective - OB Subjective Patient comments: incisional pain baby status: doing well and nursing well [place] feeding status: exclusively breast feeding Date Patient Seen: 06/27/21 Time Patient Seen: 16:38 Interval history: Postoperative day 1 primary low-transverse section for twin gestation. She is urinating well. She is passing gas. She is ambulatory. She just has incisional pain when she is up and moving. Mild lochia. No headaches, scotomata, epigastric pain. Exam Vital Signs (past 8 hours): Blood pressure 125/75, pulse of 112, temperature 97.4? Oxygen Delivery Method Room Air Narrative Exam Narrative: Abdomen is soft and somewhat distended. Uterus is firm, at U, nontender. Dressing is clean, dry, intact. Mild lochia. Extremities with trace edema and nontender. Objective Labs Result Diagrams: 06/27/21 06:22 Labs: Laboratory Results - last 24 hr 06/27/21 06:22 WBC 10.4 RBC 3.64 L Hgb 10.4 L Hct 31.1 L MCV 85.4 MCH 28.6 MCHC 33.5 RDW 15.5 H Plt Count 163 Neut % (Auto) 81.9 H Lymph % (Auto) 12.4 L Jennings % (Auto) 4.7 Eos % (Auto) 0.7 L Baso % (Auto) 0.3 Neut # (Auto) 8500 H Lymph # (Auto) 1300 Jennings # (Auto) 500 Eos # (Auto) 100 Baso # (Auto) 0 Assessment & Plan Plan day: 1 plan OB: routine postop care Time Spent With Patient Time: Total time spent is greater than 50% in coordination of care (as documented) at patient's floor/unit and/or counseling patient: Time with patient: less than 15 minutes
[2021-06-27 16:40] VITALS: TEMP 36.1
[2021-06-27 16:41] VITALS: TEMP 36.1
[2021-06-28] MEDS: IBUPROFEN 600 MG TABLET PO (05:24)
[2021-06-28] MEDS: ACETAMINOPHEN 325 MG TABLET 650 MG PO (05:24)
--- NOTE | 2021-06-28 06:25 | PM.OBDS.1 ---
Discharge Providers Provider Date of admission: 06/26/21 05:39 Discharge Date: 06/28/21 Primary care physician: Rony Grey MD Consults: 06/26/21 10:38 Consult to Radiology Physician Routine Comment: Discharge provider: Sirisha Whittaker MD Summary Hospital Course Date Patient Seen: 06/28/21 Time Patient Seen: 07:39 Diagnoses: Twin gestation delivered by section with bilateral salpingectomies for sterilization Hospital Course: Patient was admitted at 37 weeks 5 days for primary low-transverse section for twin gestation and bilateral salpingectomies for sterilization on 06/26/21. She and the twins did extremely well post operatively. Patient is ambulatory. Tolerating regular diet. Urinating well. Passing gas. Pain is under control with Motrin and Tylenol. Peripartum Data Infant Delivery Method: Section Procedures: Primary low-transverse section with bilateral salpingectomies for sterilization complications: none 1: Gender: Male Disposition of : home 2: Gender: Male Disposition of : home Discharge Diagnosis (1) Delivery by section using transverse incision of lower segment of uterus: Status: Acute (2) Sterilization: Status: Acute Problem Details: Bilateral salpingectomies Status at Discharge Cognitive/behavioral status at discharge: oriented Functional status at discharge: independent ambulation Overall status at discharge: patient is progressing back to baseline Time Spent with Patient Time attestation: Total time spent providing and/or coordinating discharge services: Time spent: Less than 30 minutes Objective Labs Result Diagrams: 06/27/21 06:22 Labs: Laboratory Results - last 24 hr 06/27/21 06:22 WBC 10.4 RBC 3.64 L Hgb 10.4 L Hct 31.1 L MCV 85.4 MCH 28.6 MCHC 33.5 RDW 15.5 H Plt Count 163 Neut % (Auto) 81.9 H Lymph % (Auto) 12.4 L Winston % (Auto) 4.7 Eos % (Auto) 0.7 L Baso % (Auto) 0.3 Neut # (Auto) 8500 H Lymph # (Auto) 1300 Winston # (Auto) 500 Eos # (Auto) 100 Baso # (Auto) 0 Exam Vital Signs (past 8 hours): Blood pressure 125/82, pulse of 98, temperature 97.2? Oxygen Delivery Method Room Air Narrative Exam Narrative: Patient's abdomen is soft, nontender. Uterus is firm, at U, nontender. Dressing is clean, dry, intact. Mild lochia. Extremities without edema and nontender. Patient is O positive, rubella immune, she received Tdap in the 3rd trimester. Discharge Plan Discharge Plan Patient Disposition: Home Discharge orders & Medications Prescriptions: New ibuprofen 600 mg Tablet 600 mg PO Q6H PRN (Reason: Fever/Mild Pain (1-3)) Qty: 30 0RF ferrous gluconate 324 mg (37.5 mg iron) tablet 324 mg PO DAILY Qty: 30 0RF Continued prenat.vits,kevon,aua-rnfi-oynmp Tablet 1 tab PO DAILY 0RF Discontinued (DME) blood-glucose meter [Blood Glucose Monitoring] Kit See Rx Instructions .ROUTE .MEDSUPPLY Qty: 1 0RF Rx Instructions: To use with testing fasting and 1 hr PP blood sugars (DME) Blood Glucose Test Strip See Rx Instructions .ROUTE .MEDSUPPLY Qty: 120 3RF Rx Instructions: Testing blood sugars fasting and 1 hr PP (DME) lancets Misc See Rx Instructions .ROUTE .MEDSUPPLY Qty: 120 3RF Rx Instructions: Testing blood sugars fasting and 1 hr PP Follow up/Referrals: Rony Grey MD [Primary Care Provider] - Hitesh Rosenthal MD [Physician] - 1 Week (Aquacel removal) Diet/Activity/Treatments Diet: Regular Activity: Nothing in vagina or lifting over 20 lb for 6 weeks Skin/Wound/Dressing Care Report to your healthcare provider any signs of infection, such as:: chills, fever and increased pain Dressing: Leave dressing on until 1 week post exam Discharge Data Primary Care Provider: Rony Grey
== END 2021-06-28 11:00 | disposition home or self-care (01) | DRG 785 ==
PROVIDERS: Admitting Provider Obstetrics & Gynecology; PCP Family Medicine; Referring Provider Obstetrics & Gynecology; Visit Provider Obstetrics & Gynecology
PROC: (CPT 59514; principal; 2021-06-26 07:45)
DX: O32.1XX0 Maternal care for breech presentation, not applicable or unspecified (principal); O30.043 Twin pregnancy, dichorionic/diamniotic, third trimester; Z3A.37 37 weeks gestation of pregnancy; Z37.2 Twins, both liveborn; Z30.2 Encounter for sterilization; O99.824 Streptococcus B carrier state complicating childbirth; Z86.16 Personal history of COVID-19; O24.420 Gestational diabetes mellitus in childbirth, diet controlled
CPT/HCPCS: 36415; 58611; 59050; 59510; 59514; 85025; 86850; 86900; 86901; 87635; C9803; J0690; J1885; J2274; J2405; J2590

== ENCOUNTER → 2023-12-08 08:31 | Outpatient (CLI) | payer OTHER, SELFPAY ==
--- NOTE | 2023-12-08 08:46 | DI.RAD.S_ITS ---
PROCEDURE: XR CHEST 2V INDICATIONS: Cough TECHNIQUE: 2 views of the chest were acquired. COMPARISON: None. FINDINGS: Surgical changes and devices: None. Lungs and pleura: Lungs are clear. No pleural effusions or pneumothorax. Mediastinum: Mediastinal contours are normal. Heart size is normal. Bones and chest wall: No suspicious bony abnormalities. Soft tissues appear unremarkable. IMPRESSION: No acute cardiopulmonary abnormality is seen. Dictated by: Sid Proctor M.D. on 12/08/2023 at 10:20 Approved by: Sid Proctor M.D. on 12/08/2023 at 10:20
[2023-12-08 09:12] LABS: Influenza A - CEPHEID Flu A NEGATIVE (NEGATIVE); Influenza B - CEPHEID Flu B NEGATIVE (NEGATIVE); Respiratory Syncytial Virus Negative (Negative)
[2023-12-08 09:13] LABS: COVID-19 CEPHEID 4-PLEX PCR Negative (Negative)
== END ==
PROVIDERS: PCP Family Medicine; Referring Provider Physician Assistant Medical; Visit Provider Physician Assistant Medical
DX: R05.9 Cough, unspecified (principal); R05.1 Acute cough
CPT/HCPCS: 0241U; 71046

== ENCOUNTER → 2024-09-05 07:03 | Outpatient (CLI) | payer OTHER, SELFPAY ==
[2024-09-05 07:33] LABS: Add Manual Diff / Slide Review NO; Basophils Absolute Auto 0 /uL (0-100); Basophils Percent Auto 0.5 % (0-2); Eosinophils Absolute Auto 300 /uL (0-450); Eosinophils Percent Auto 3.3 % (2-4); Hematocrit 35.7 % (36-46); Hemoglobin 11.6 g/dL (12.0-16.0); Lymphocytes Absolute Auto 2000 /uL (1100-4500); Lymphocytes Percent Auto 23.1 % (25-40); Mean Corpuscular HGB Conc 32.5 % (30-36); Mean Corpuscular Hemoglobin 25.7 PG (26-34); Mean Corpuscular Volume 79.2 fL (80-100); Monocytes Absolute Auto 500 /uL (0-900); Monocytes Percent Auto 5.2 % (3-14); Neutrophils Absolute Auto 5900 /uL (1500-7000); Neutrophils Percent Auto 67.9 % (50-75); Platelet Count 178 X10^3/uL (150-400); Red Blood Cell Count 4.51 X10^6/uL (4.0-5.2); Red Cell Distribution Width 15.5 % (11.6-14.8); White Blood Cell Count 8.7 X10^3/uL (4.5-11.0)
[2024-09-05 07:40] LABS: Hemoglobin A1C% w Est Avg Glu 5.8 % (4.0-6.0)
[2024-09-05 08:02] LABS: Alanine Aminotransferase 34 IU/L (<35); Albumin 4.2 g/dL (3.5-5.0); Albumin Globulin Ratio 1.5 (1.0-2.8); Alkaline Phosphatase 89 U/L (38-126); Aspartate Aminotransferase 28 IU/L (14-36); BUN Creatinine Ratio 23.5 (6-22); Bilirubin Total 0.3 mg/dL (0.2-1.3); Blood Urea Nitrogen 12 mg/dL (7-17); Carbon Dioxide 25 mmol/L (22-32); Chloride 104 mmol/L (98-107); Cholesterol 146 mg/dL (140-199); Estimated Glomerular Filt Rate > 60 mL/min (>60); Globulin 2.8 g/dL (1.7-4.1); Glucose 109 mg/dL (70-99); HDL Cholesterol 39 mg/dL (40-60); HEMOLYSIS < 15 (0-50); LDL Cholesterol Calculated 78 mg/dL (<100); Potassium 3.9 mmol/L (3.4-5.1); Sodium 138 mmol/L (137-145); Triglycerides 143 mg/dL (35-150)
[2024-09-05 08:31] LABS: TSH w/ Reflex to FT4 0.85 uIU/mL (0.47-4.68)
== END ==
PROVIDERS: PCP Family Medicine; Referring Provider Family Medicine; Visit Provider Family Medicine
DX: Z00.00 Encounter for general adult medical examination without abnormal findings (principal); Z86.32 Personal history of gestational diabetes; Z68.43 Body mass index [BMI] 50.0-59.9, adult
CPT/HCPCS: 36415; 80053; 80061; 83036; 84443; 85025

== ENCOUNTER → 2024-10-18 16:28 | Outpatient (CLI) | payer OTHER, SELFPAY ==
--- NOTE | 2024-10-23 09:00 | DIET.OUTPTC ---
Dietary Outpatient Consult Consult Date:10/18/24 Visit over telehealth. Assessment:? 34 y F referred to dietitian for obesity, BMI 45.0-49.9. 3 young kids, difficult to stay on top of nutrition and exercise. Hx of GDM, saw 's CDCES. Recent a1c 5.8%, 39 HDL GI symptoms: denies D/C/V/N Diet Recall: B-bagel and cream cheese or egg sandwich L-sandwich with small bag of chips (deli meat and cheese) or schrader and cheese burrito D-chk/fish and rice or pasta snacks of either granola or popcorn Fluids: 1 cup coffee in morning with creamer Water 40-80 oz IV liquid pack 2x/wk to flavor water Ht:?5 ft 4 in? Wt:349 lb?? BMI:?59.9? Activity: wants to go on treadmill more Nutrition Diagnosis:? Inadequate fiber intake r/t limited time for preparing meals aeb <15 g fiber per diet recall Physical inactivity r/t stages of change with kids aeb <150 minutes per week Interventions:? Discussed and provided appropriate resources on the following: -Balanced meals and snacks in line with myplate, Mediterranean style of eating -Portion sizing -Education on label reading -Assessing hunger/fullness level -Reivew of plate Method, impact of macronutrients on blood sugar, meal timing, carbohydrate counting, pairing macronutrients and spreading out carbohydrates for better blood glucose management -Fiber, amounts, types, benefits -Physical activity -Lab values and correlation with nutrition/activity Goals: -Prepping veggies in morning to have available in house throughout day for family (i.e carrots, crane peppers, cucumbers), and as able add microwave bag of vegs at dinner -Walk on treadmill 2-3x/wk after putting kids to bed during down time EER:? 25-28 g fiber daily, 30-45 g CHO at meals Monitoring/Evaluations:? F/u in 4 wks Electronically Signed by: Taylor Thomas Clinical Dietitian [address] [address]
== END ==
LOC: DIET 16:28
PROVIDERS: PCP Family Medicine; Referring Provider Family Medicine
DX: E66.9 Obesity, unspecified (principal); Z71.3 Dietary counseling and surveillance; Z86.32 Personal history of gestational diabetes; Z68.43 Body mass index [BMI] 50.0-59.9, adult
CPT/HCPCS: 97802